=== PATIENT | female | born 1970 | race Caucasian/White ===

== ENCOUNTER → 2023-09-15 07:27 | Outpatient (REF) | payer OTHER, SELFPAY | LOC: EMG 07:27 | PROVIDERS: ATTENDING PHYSICIAN Orthopaedic Surgery | DX: M25.511 Pain in right shoulder (principal); R20.0 Anesthesia of skin | CPT/HCPCS: 95886; 95910 ==

== ENCOUNTER 2023-10-08 18:13 | Observation (INO) | payer OTHER, SELFPAY ==
[2023-10-08] VITALS (10 sets, daily range): BP systolic 98–153; BP diastolic 78–109; BMI 24.9
--- NOTE | 2023-10-08 13:29 | ED TECH ---
A STROKE ALERT was called #[phone]#@13:28 pm per Jeanne(hog cooler). [employer] Notified.
[2023-10-08 13:34] LABS: Glucose - Point of Care 188 mg/dl (70-99)
--- NOTE | 2023-10-08 13:39 | ED.CVA ---
History of Present Illness
General
Chief Complaint: CVA/TIA Symptoms
Source: patient
Exam Limitations: none
Time Seen by Provider: 10/08/23 13:36
Nursing documentation reviewed up to this point in time: agreed with
Onset of Stroke Symptoms
Onset of symptoms known: No
Time pt last seen normal is known: Yes
Date last time pt seen normal: 10/07/23
Travel History
Have you had any contact with someone who has COVID-19?: No
Do you have any symptoms of coronavirus? Fever > 100 degrees, chills, cough, shortness of breath, sore throat, loss of taste or smell, muscle aches, or headache?: No
History of Present Illness
History of Present Illness:
53-year-old female with past medical history as documented notably anxiety, depression, polysubstance use, PTSD, prior suicide attempts who presents to the emergency room for evaluation of speech difficulties. Patient is having difficulty
expressing herself and is as a result very limited as a historian. I called her who provided collateral history� has been sick with COVID has been self isolating self has been trying to keep away from her but he last saw her normal
yesterday. Today when he went down for breakfast she was having difficulty with speech patient brought to the emergency room for assessment. Apparently patient has had issues with chronic neck pain and was apparently scheduled for surgery with
[facility] this past Friday but unfortunately the procedure was declined by patient's insurance and she found out on Friday that it would have to be rescheduled. describes that she has had 'an mental downfall' since that point and has been very
anxious and distraught. Apparently over the past few days she has not been eating or drinking well. This morning he happened upon her with her speech issues when he saw her at breakfast. When I asked the patient what is wrong she says 'I do not
know what is wrong.' When asked of the months she is unable to tell me. She can tell me her name. She can answer basic yes or no questions and so she denies any headache, chest pain, abdominal pain, weakness or numbness in extremities, loss of
vision. No history of trauma.
Past History
Past History
ED Past Medical History: GERD, Psychiatric (Anxiety, depression, PTSD, substance abuse) and Other (Chronic low back pain, lumbar disc disease, anemia, small bowel obstructions)
ED Past Surgical History: Tonsilectomy and Other (Gastric bypass 2002, small bowel perforation, abdominal wall hernia repair,)
Social History
Tobacco: Non-smoker
Alcohol: None
Drug: Other
Personal:
Living: with family
Employment: Employed
Family History
Family History: CAD; Negative Early CAD
Review of Systems
Review of Systems
Unable to obtain full review of systems at this time due to: due to acuity
All Other Systems: Not applicable
Phy Exam
Physical Exam
Physical Exam:
General: Awake, alert, very anxious and with significant expressive aphasia
Head: Normocephalic, atraumatic
Eyes: Conjunctiva normal, EOMI, pupils equal round reactive to light bilaterally
Throat: Airway intact, handling secretions
Neck: Trachea midline, supple without meningismus
Lungs: Clear to auscultation bilaterally, no wheezing, rales, rhonchi
Heart: Tachycardia with regular rhythm, no murmurs, gallops, or rubs
Abd: Soft, non distended, nontender
Neuro: Cranial nerves are intact 2 through 12, patient following commands, she has expressive aphasia but no notable dysarthria; motor and sensory function is intact and symmetric upper and lower extremities, no limb ataxia
Skin: no rash
Extremities: Warm and well-perfused
Scores
NIH Stroke Score
Level of Consciousness: 0 - Alert
LOC Questions: 1-Answers one correctly
LOC Commands: 0-Performs both correctly
Best Horizontal Gaze: 0-Normal
Visual Mario: 0=Normal, no visual loss
Facial Palsy: 0=Normal, symmetrical
Motor - Right Arm: 0=No drift 10 seconds
Motor - Left Arm: 0=No drift 10 seconds
Motor - Right Le-No drift 5 seconds
Motor - Left Le-No drift 5 seconds
Limb Ataxia: 0-Absent
Sensation: 0-Normal
Best Language: 2-Severe aphasia
Dysarthria: 0-Normal
Extinction and Inattention: 0-No abnormality
Total Score:: 3
Thrombolytic Contraindication
Inclusion and Exclusion criteria reviewed: Yes
Reasons for NON-Tx with Thrombolytics ABSOLUTE Exclusions: Greater than 4.5 hrs from onset of sxs
Heart Failure Risk
Heart Failure Risk Score: Not Applicable
Heart Score for Chest Pain Patients
STEMI patient?: Not applicable
Withdrawal Assessment of Alcohol
Withdrawal Assessment Completed?: Not applicable
Course
Orders/Labs/Results
Orders:
Orders
10/08/23 13:36
CT Head & Neck Angio W/wo IV Urgent
Comment:
Reason For Exam: aphasia
CT Head W/o Cont STROKE ALERT Urgent
Comment:
Reason For Exam: aphasia
10/08/23 13:37
Electrocardiogram (*1) Urgent
Reason for Study: TIA/Stroke
EKG- Treatment ONCE
Drug Screen, Urine [Urine Drug Abuse Screen] Urgent
Urinalysis Reflex To Culture Urgent
10/08/23 13:46
PTT Urgent
Prothrombin Time Urgent
10/08/23 13:47
Alcohol Urgent
Complete Blood Count/With Diff Urgent
Comprehensive Metabolic Panel Urgent
Creatine Phosphokinase Urgent
GGTP Urgent
Magnesium Urgent
Vitamin B12 Routine
Comment: ADD ON
10/08/23 13:49
COVID-19 Antigen Urgent
Source: Nasal Swab
Influenza A+B Rapid Molecular Urgent
DWAYNE Source: Nasal Swab
Specimen Description:
10/08/23 13:53
Lorazepam [Ativan] 1 mg PO NOW STA
10/08/23 15:55
Thiamine Injection 100 mg IV NOW STA
10/08/23 15:56
0.9% Sodium Chloride 500 ml [Nss] 500 ml IV BOLUS
FOLic ACID [Folvite] 1 mg 0.9% Sodium Chloride 50 ml [Nss] 50 ml IV ONCE
10/08/23 16:18
Lorazepam [Ativan] 0.5 mg IV NOW STA
10/08/23 16:32
Add On- LAB Routine
Tests Added?: cpk,ggtp,Magnesium,B12
10/08/23 17:06
Admit/Transfer Patient As Directed
Co-Sign Provider:
Level of Care: Observation services
Assign to:: Telemetry
Physician / Group: Hospitalist
Diagnosis: Expressive aphasia
Reason for Telemetry: CVA/TIA
Date to Stop Telemetry: 10/11/23
Time to Stop Telemetry: 11:00
10/08/23 17:09
Code Status As Directed
Resuscitation Status: Full Code
10/11/23 11:00
DC Protocol for Telemetry ONCE
Abnormal Lab Results
10/08/23 10/08/23 10/08/23
13:32 13:47 13:49
RBC 4.08 L 10^6/uL
(4.20-5.40)
MCH 32.6 H pg
(27.0-31.0)
Abs Immat Gran (auto) 0.1 H 10^3/uL
(0-0.05)
Absolute Neuts (auto) 7.3 H 10^3/uL
(1.4-6.5)
Absolute Lymphs (auto) 0.6 L 10^3/uL
(1.2-3.4)
Absolute Monos (auto) 1.0 H 10^3/uL
(0.1-0.6)
Immature Gran % 0.8 H %
(0-0.5)
Neutrophils % 80.7 H %
(42.2-75.2)
Lymphocytes % 6.9 L %
(20.5-51.1)
Monocytes % 10.8 H %
(1.7-9.3)
Sodium 134 L mmol/L
(135-145)
BUN 22 H mg/dl
(7-17)
Glucose 143 H mg/dl
(70-99)
AST 256 H U/L
(14-36)
ALT 92 H U/L
(0-35)
SARS-CoV-2 Antigen Positive A
(Negative)
POC Glucose 188 H mg/dl
(70-99)
10/08/23 13:47
10/08/23 13:47
Vital Signs
Initial and Last Documented VS:
Initial Vital Signs
Temp Pulse Resp BP Pulse Ox
37.1 C 136 18 126/85 98
10/08/23 13:26 10/08/23 13:26 10/08/23 13:26 10/08/23 13:26 10/08/23 13:26
Last Documented Vital Signs
Temp Pulse Resp BP Pulse Ox
37.1 C 114 24 129/85 98
10/08/23 13:26 10/08/23 17:30 10/08/23 17:30 10/08/23 17:06 10/08/23 13:26
MDM/Problems Addressed
Differential Diagnosis Includes:
Stroke, panic attack, seizure, complex migraine, drug/alcohol intoxication
MDM/Problems Addressed:
53-year-old female presents for evaluation of speech difficulties first noticed by this morning. Last seen well yesterday. Tachycardic but otherwise normal vitals. Exam as above. Stroke alert called on arrival. Neurology at bedside.
Patient taken for CT head which was negative. IV placed labs sent off including a CBC and a CMP, alcohol level, UDS. She was swabbed for COVID as well given her is positive for COVID. Will send for CTA head and neck. Neurology
recommending dose of Ativan. Neurology recommended against tPA patient outside the window. Will plan for admission pending initial workup.
Labs reviewed CBC unremarkable, CMP shows mild transaminitis with AST greater than ALT consistent with some alcohol use. Her alcohol level is negative right now. She tested positive for COVID. CTA head and neck no large vessel occlusion or
dissection. Clinical reassessment patient's expressive aphasia remains unchanged but she is having increasing anxiety and agitation. Will dose with additional Ativan. Case discussed with hospitalist for admission.
Chronic conditions affecting care:
Substance use, anxiety, depression
*Radiology
Radiology exam reviewed: radiology read reviewed
*Pulse Oximetry
Patient hypoxic: no
*EKG
Interpreted by ED Provider?: Yes
Heart Rate: 119
Rate: tachycardiac
Rhythm: sinus and sinus tachycardia
[place]: normal axis
Interval: normal interval
QRS Pattern: normal QRS
Ischemia: no ischemia
*Critical Care Note
Total Time (30-74mins, 75-104mins- exclusive of procedures): 39
comment:
Critical care statement: A total of 39 minutes of critical care time was provided for this patient. This includes management of unstable vital signs, evaluation of the patient at bedside, frequent reassessment, discussion with
consultants/hospitalist, and review of pertinent medical records. This time was separate from time utilized to perform any aforementioned documented procedures
Data Reviewed
Review of Other/Old Records Reveals: Records
Source: patient and spouse
Patient Management
Social determinants of health affecting care: Substance abuse
Discussion with other providers: Hospitalist (Discussed with hospitalist) and Formal Waiter/Waitress (Discussed with neurology)
Escalation/DeEscalation of care consider admission/obs:
Admission indicated
ED Attending Note
-
Portions of this chart may have been created with voice recognition software.� Occasional wrong word or��sound alike� substitutions may have occurred due to the inherent limitations of voice recognition software.
Discharge Plan
Departure
Patient Disposition: Admit
Date of Disposition: 10/08/23
Time of Disposition: 15:55
Admit to doctor: Debi
Presentation/result/management discussed w/ accepting MD/DO: Hospitalist
Discharge Problem:
Expressive aphasia
Prescriptions:
No Action
albuterol sulfate 2.5 mg /3 mL (0.083 %) Solution For Nebulization
2.5 mg INHALATION R Q4HPRN PRN (Reason: sob)
trazodone 50 mg Tablet
50 mg PO HS PRN (Reason: sleep)
tizanidine 4 mg Tablet
4 mg PO BID PRN (Reason: muscle spasms)
clonazepam 0.5 mg Tablet
0.5 mg PO BID PRN (Reason: anxiety)
Patient Comments:
10/08/2023, pt. filled this med. on 10/05/2023 for 60 tablets per PDMP.
cyanocobalamin (vitamin B-12) 1,000 mcg Tablet
1,000 mcg PO DAILY
Theragen Tablet
1 tab PO DAILY
melatonin 3 mg Tablet
3 mg PO HS PRN (Reason: sleep)
ferrous sulfate 325 mg (65 mg iron) Tablet
325 mg PO DAILY
buspirone 7.5 mg Tablet
7.5 mg PO BID
zolpidem 5 mg Tablet
5 mg PO HS PRN (Reason: sleep)
Patient Comments:
10/08/2023, pt. filled this on 10/05/2023 for 30 tablets per PDMP.
albuterol sulfate 90 mcg/actuation Hfa Aerosol Inhaler
1 puff INHALATION R Q4HPRN PRN (Reason: sob)
morphine 15 mg Tablet
15 mg PO Q8H PRN (Reason: severe pain)
Patient Comments:
10/08/2023, pt. filled this med. on 09/29/2023 for 90 tablets per PDMP.
prazosin 2 mg Capsule
2 mg PO HS
spironolactone 50 mg Tablet
50 mg PO BID
pregabalin 50 mg Capsule
100 mg PO BID
Patient Comments:
10/08/2023, pt. filled this med. on 09/30/2023 for 120 capsules per PDMP.
pregabalin 150 mg Capsule
150 mg PO BID
Patient Comments:
10/08/2023, pt. filled this med. on 10/03/2023 for 60 capsules per PDMP.
cholecalciferol (vitamin D3) 50 mcg (2,000 unit) Tablet
50 mcg PO DAILY
baclofen 5 mg Tablet
5 mg PO BID PRN (Reason: muscle spasms)
Referrals:
UNKNOWN - PT DOES,NOT KNOW [Family Provider] -
Interventions
Interventions:
*Risk Screen - Suicide Last Done: 10/08/23 13:59
*General Assessment Last Done: 10/08/23 13:40
*Neglect/Abuse Screening Last Done: 10/08/23 13:59
ED- Fall Risk Assessment Last Done: 10/08/23 13:53
*ED COVID-19 Vaccine History Last Done: 10/08/23 13:40
ED- Pulmonary Assessment Last Done: 10/08/23 13:53
ED- Neurological Assessment Last Done: 10/08/23 13:53
ED- Cardiac Assessment Last Done: 10/08/23 13:53
ED Swallowing Screen Last Done: 10/08/23 13:59
[2023-10-08 14:01] LABS: % Basophils 0.6 % (0-2); % Eosinophils 0.2 % (0-6); % Immature Granulocytes 0.8 % (0-0.5); % Lymphocytes 6.9 % (20.5-51.1); % Monocytes 10.8 % (1.7-9.3); % Neutrophils 80.7 % (42.2-75.2); Absolute Basophils 0.1 10^3/uL (0-0.2); Absolute Immature Granulocytes 0.1 10^3/uL (0-0.05); Absolute Lymphocytes 0.6 10^3/uL (1.2-3.4); Absolute Neutrophils 7.3 10^3/uL (1.4-6.5); Hematocrit 38.3 % (37.0-47.0); Hemoglobin 13.3 g/dL (12.0-16.0); Mean Corp Hgb Conc. 34.7 g/dL (33.0-37.0); Mean Corpuscular Hgb 32.6 pg (27.0-31.0); Mean Corpuscular Volume 93.9 fL (81.0-99.0); Nucleated Red Blood Cells % 0 %; Platelet Count 236 10^3/uL (130-400); Red Blood Cell Count 4.08 10^6/uL (4.20-5.40); Red Cell Dist. Width 13.1 % (11.5-14.5)
[2023-10-08] MEDS: ATIVAN 1 MG PO (14:05)
[2023-10-08 14:17] LABS: ALT (SGPT) 92 U/L (0-35); AST (SGOT) 256 U/L (14-36); Albumin 4.4 g/dl (3.5-5.0); Alkaline Phosphatase 108 U/L (38-126); Blood Urea Nitrogen 22 mg/dl (7-17); Calcium 9.1 mg/dl (8.4-10.2); Carbon Dioxide 26 mmol/L (22-30); Chloride 100 mmol/L (98-107); Glucose 143 mg/dl (70-99); Sodium 134 mmol/L (135-145); Total Bilirubin 0.8 mg/dl (0.2-1.3); Total Protein 6.9 g/dl (6.3-8.2); eGFR > 60.00
[2023-10-08 14:19] LABS: COVID-19 Antigen Positive (Negative)
[2023-10-08 14:22] LABS: APTT 31.8 Sec (23.4-35.0); INR 1.07; PT 13.9 Sec (11.4-14.6)
[2023-10-08 14:22] LABS: Alcohol None Detected
--- NOTE | 2023-10-08 15:36 | CON.NEURO4 ---
Addendum entered and electronically signed by Sai Lundy MD 10/08/23 16:55:
Studies reviewed.
I have personally examined the patient. I reviewed and agree with the COMMERCIAL LOAN ASSISTANT's Note.
My addenda:
Awake, alert, interactive. No acute distress.
Speech variably intact for spontaneous phrases and markedly reduced with specific testing with regards to smooth speech. Words are clear with exception of stuttering
Follows 2-step requests w/o difficulty. No tremor.
Extra-ocular movements grossly intact.
Facial movements full and symmetric. Hearing intact to normal conversational volume.
Normal UE movements bilaterally.
Neck: full ROM.
Chest: no dyspnea
Heart: no JVD
Ext: (-) Clubbing, (-) Cyanosis, (-) Edema
IMPRESSIONS/RECOMMENDATIONS:
Abrupt onset of aphasia in the form of stuttering and emotional dyscontrol with a prior history of functional neurological disorder.
Differential diagnosis includes functional neurological disorder as well as much less likely, stroke which is made even less likely based on CT of the head being unremarkable, however more likely in the form of newly diagnosed COVID-19 infection
There is no indication this time the patient will require additional neuroimaging
Provide lorazepam 1 mg now
Check blood work for additional metabolic abnormalities which may be producing patient's symptomatology
Will continue to follow as needed.
Original Note:
Documented by User: Nell Ng NP 10/08/23 16:00
Consultation - Neurology 4
-
CONSULTING PHYSICIAN: Sai Lundy MD
REFERRING PHYSICIAN: ER/Dr. Scott
DICTATED BY: ALVARO Tyler
DATE/TIME OF REQUEST: 10/08/23
DATE/TIME OF CONSULTATION: 10/08/23
Reason for Consultation: Stroke Alert
History of Present Illness:
This is a 53-year-old female who has presented to the hospital with report of expressive aphasia. Patient was previously evaluated by our Neurology service in 03/2017 for seizure-like activity, MRI brain and EEG were unremarkable at that time.
From previous evaluation by Dr. Wilson on 04/26/17:
'The patient is a 47 years old female who was brought to the hospital last night with chief complaint of an episode of full body stiffness and shaking. Patient reports that since yesterday she has been feeling dizzy, and uneasy. Last night before
going to the bed, she was using the toilet, when she suddenly experienced an electric sensation passing through her left upper extremity then spreading to involve her left lower extremity, and then resulting in stiffness of all her 4 extremities
which was accompanied by shaking. This scared the patient, and she called out for her . When the came to the bathroom he found the patient to be stiff in all 4 extremities, shaking, with her tongue protruding out, and possibly bitten.
This episode lasted for about 45 seconds and patient was aware of it up until the time of stiffening of the extremities and electric sensation going through it.� She is not aware of the actual shaking, but remembers her getting her to the
bed. She denies any confusion immediately after this episode. She denies having experienced any similar events in the past. She reports going through a lot of stress lately because of some serious family issues. She also reports inadequate sleep in
the last few days because of her chronic back pain. She denies having taken any nonprescription medications. She denies having had any other similar episodes since arrival at the hospital.'
Patient has been experiencing chronic neck pain and was scheduled for cervical surgery on 10/06/[address] Hurd at [facility]. Due to insurance circumstances, her surgery was canceled. Her has been isolating due to COVID, but he reports
since her surgery was canceled, she has had a mental 'downfall' and has not been eating or drinking. He reports that he saw her last evening (10/07/23) and she was at her baseline. This morning (10/08/23), she brought him breakfast and he noticed that
she was not speaking normally, prompting him to bring her to the ER for evaluation. A stroke alert was activated due to aphasia. CT head was obtained and is negative for any acute abnormalities. NIHSS is a 2 for mild aphasia and inability to provide
the month. She has a history of gastric bypass and also takes several medications for chronic pain and psychological issues. She is not a candidate for TNK/IAT due to unclear diagnosis, symptoms less supportive of stroke and more supportive of
anxiety and polypharmacy/lack or oral intake.
Past Medical History: PNES, Anxiety, depression, PTSD, substance abuse, overdose, migraines, GERD, chronic low back pain, lumbar DDD, C5 radiculopathy, SBO/perforation, anemia
Surgical History: Tonsillectomy, gastric bypass, abdominal wall hernia repair, colectomy, mastoidectomy
Family History: Mother- brain tumor and seizures.
Social History: Denies tobacco, alcohol, and illicit drug use.
Allergies: Ketamine, sulfa, tetracycline.
Home Medications: See below.
Review of Symptoms:
Patient denies any fever, headache, chest pain, shortness of breath, GI or symptoms.
�Per the HPI.�All systems are reviewed negative except above.
Physical Exam:
The patient is afebrile, abdomen is nondistended, breathing is unlabored, skin is warm and dry. LLE with ecchymosis and trace edema.
NIH Stroke Scale:
I performed the NIH stroke scale on the patient on 10/08/23 at 1345. The patient scored 2 points on the NIH stroke scale assessment, which were assigned as follows:
Neurologic Examination:
The patient is awake, alert and oriented to person and place, confused behavior. Tearful/anxious. She is able to follow commands and answer some questions appropriately. There is mild aphasia. No dysarthria. On cranial nerve assessment, pupils are
3 mm bilateral, round and reactive to light and accommodation. Visual mario are full. Extraocular movements are intact. There is no facial asymmetry. Hearing is intact bilaterally to normal conversation volume. Tongue palate and uvula are midline.
There is no tongue laceration noted. Sternocleidomastoid strengths are full bilaterally. Motor strengths are 5/5 bilateral upper and lower extremities on medical research [place] scale. There is no drift or involuntary movement noted. Deep tendon
reflexes are 2+ bilateral upper and lower extremities and Babinski is absent bilaterally. SAHARA sensation and DBS. Coordination is intact by finger to nose bilaterally.
Lab Results: See below.
Neuro Imaging:
1. CT head 10/08/23: Normal. Aspect score: 10.
2. CTA head/neck 10/08/23: pending.
Differentials for the patient's presentation include:
1. Metabolic disturbance in the setting of polypharmacy and lack of oral intake in addition to anxiety, producing speech changes.
2. Low concern for stroke or seizure.
3. COVID positive.
Patient has the following risk factors for their symptoms: Polypharmacy, anorexia, gastric bypass, anxiety
IV Tenecteplase/IAT candidacy: She is not a candidate for TNK/IAT due to unclear diagnosis, symptoms less supportive of stroke and more supportive of anxiety and polypharmacy/lack of oral intake.
Recommendations:
-CTA head/neck ordered/pending.
-Checking blood work for metabolic disturbance, infection, drug/alcohol screen.
-Provide lorazepam 1mg x1 now.
-Provide thiamine and folic acid supplementation.
-Neurological checks per unit guidelines.
Discussed patient care with: Dr. Lundy, Dr. Scott, the patient.
NIH Stroke Score
Subsequent NIH Scale
Date of Subsequent NIH Scale: 10/08/23
Time of Subsequent NIH Scale: 13:45
NIH Stroke Score
Level of Consciousness: 0 - Alert
LOC Questions: 1-Answers one correctly
LOC Commands: 0-Performs both correctly
Best Horizontal Gaze: 0-Normal
Visual Mario: 0=Normal, no visual loss
Facial Palsy: 0=Normal, symmetrical
Motor - Right Arm: 0=No drift 10 seconds
Motor - Left Arm: 0=No drift 10 seconds
Motor - Right Le-No drift 5 seconds
Motor - Left Le-No drift 5 seconds
Limb Ataxia: 0-Absent
Sensation: 0-Normal
Best Language: 1-Mild aphasia
Dysarthria: 0-Normal
Extinction and Inattention: 0-No abnormality
Total Score:: 2
Vital Signs and Labs
-
Vital Signs and Labs:
Vital Signs
Temp Pulse Resp BP Pulse Ox
98.7 F 128 12 142/92 98
10/08/23 13:26 10/08/23 13:45 10/08/23 13:45 10/08/23 13:44 10/08/23 13:26
Lab Results
10/08/23 13:47
10/08/23 13:47
PT 13.9 Sec (11.4-14.6) 10/08/23 13:46
INR 1.07 10/08/23 13:46
APTT 31.8 Sec (23.4-35.0) 10/08/23 13:46
Sodium 134 mmol/L (135-145) L 10/08/23 13:47
Potassium 4.0 mmol/L (3.5-5.1) 10/08/23 13:47
BUN 22 mg/dl (7-17) H 10/08/23 13:47
Glucose 143 mg/dl (70-99) H 10/08/23 13:47
Calcium 9.1 mg/dl (8.4-10.2) 10/08/23 13:47
Medications
-
Home Medications
Medication Instructions Recorded
albuterol sulfate 2.5 mg/3 mL 2.5 mg inhalation R Q4HPRN PRN sob 10/08/23
(0.083 %) solution for nebulization
albuterol sulfate 90 mcg/actuation 1 puff inhalation R Q4HPRN PRN sob 10/08/23
aerosol inhaler
baclofen 5 mg tablet 5 mg PO BID PRN muscle spasms 10/08/23
buspirone 7.5 mg tablet 7.5 mg PO BID 10/08/23
cholecalciferol (vitamin D3) 50 50 mcg PO DAILY 10/08/23
mcg (2,000 unit) tablet
clonazepam 0.5 mg tablet 0.5 mg PO BID PRN anxiety 10/08/23
cyanocobalamin (vitamin B-12) 1,000 mcg PO DAILY 10/08/23
1,000 mcg tablet
ferrous sulfate 325 mg (65 mg 325 mg PO DAILY 10/08/23
iron) tablet
melatonin 3 mg tablet 3 mg PO HS PRN sleep 10/08/23
morphine 15 mg immediate release 15 mg PO Q8H PRN severe pain 10/08/23
tablet
prazosin 2 mg capsule 2 mg PO HS 10/08/23
pregabalin 150 mg capsule 150 mg PO BID 10/08/23
pregabalin 50 mg capsule 100 mg PO BID 10/08/23
spironolactone 50 mg tablet 50 mg PO BID 10/08/23
therapeutic multivitamin 1 tab PO DAILY 10/08/23
tizanidine 4 mg tablet 4 mg PO BID PRN muscle spasms 10/08/23
trazodone 50 mg tablet 50 mg PO HS PRN sleep 10/08/23
zolpidem 5 mg tablet 5 mg PO HS PRN sleep 10/08/23

Documented by User: Sai Lundy MD 10/08/23 16:48
Consultation - Neurology 4
-
CONSULTING PHYSICIAN: Sai Lundy MD
REFERRING PHYSICIAN: ER/Dr. Scott
DICTATED BY: ALVARO Tyler
DATE/TIME OF REQUEST: 10/08/23
DATE/TIME OF CONSULTATION: 10/08/23
Reason for Consultation: Stroke Alert
History of Present Illness:
This is a 53-year-old female who has presented to the hospital with report of expressive aphasia. Patient was previously evaluated by our Neurology service in 03/2017 for seizure-like activity, MRI brain and EEG were unremarkable at that time.
From previous evaluation by Dr. Wilson on 04/26/17:
'The patient is a 47 years old female who was brought to the hospital last night with chief complaint of an episode of full body stiffness and shaking. Patient reports that since yesterday she has been feeling dizzy, and uneasy. Last night before
going to the bed, she was using the toilet, when she suddenly experienced an electric sensation passing through her left upper extremity then spreading to involve her left lower extremity, and then resulting in stiffness of all her 4 extremities
which was accompanied by shaking. This scared the patient, and she called out for her . When the came to the bathroom he found the patient to be stiff in all 4 extremities, shaking, with her tongue protruding out, and possibly bitten.
This episode lasted for about 45 seconds and patient was aware of it up until the time of stiffening of the extremities and electric sensation going through it.� She is not aware of the actual shaking, but remembers her getting her to the
bed. She denies any confusion immediately after this episode. She denies having experienced any similar events in the past. She reports going through a lot of stress lately because of some serious family issues. She also reports inadequate sleep in
the last few days because of her chronic back pain. She denies having taken any nonprescription medications. She denies having had any other similar episodes since arrival at the hospital.'
Patient has been experiencing chronic neck pain and was scheduled for cervical surgery on 10/06/[address] Hurd at [facility]. Due to insurance circumstances, her surgery was canceled. Her has been isolating due to COVID, but he reports
since her surgery was canceled, she has had a mental 'downfall' and has not been eating or drinking. He reports that he saw her last evening (10/07/23) and she was at her baseline. This morning (10/08/23), she brought him breakfast and he noticed that
she was not speaking normally, prompting him to bring her to the ER for evaluation. A stroke alert was activated due to aphasia. CT head was obtained and is negative for any acute abnormalities. NIHSS is a 2 for mild aphasia and inability to provide
the month. She has a history of gastric bypass and also takes several medications for chronic pain and psychological issues. She is not a candidate for TNK/IAT due to unclear diagnosis, symptoms less supportive of stroke and more supportive of
anxiety and polypharmacy/lack or oral intake.
Past Medical History: PNES, Anxiety, depression, PTSD, substance abuse, overdose, migraines, GERD, chronic low back pain, lumbar DDD, C5 radiculopathy, SBO/perforation, anemia
Surgical History: Tonsillectomy, gastric bypass, abdominal wall hernia repair, colectomy, mastoidectomy
Family History: Mother- brain tumor and seizures.
Social History: Denies tobacco, alcohol, and illicit drug use.
Allergies: Ketamine, sulfa, tetracycline.
Home Medications: See below.
Review of Symptoms:
Patient denies any fever, headache, chest pain, shortness of breath, GI or symptoms.
�Per the HPI.�All systems are reviewed negative except above.
Physical Exam:
The patient is afebrile, abdomen is nondistended, breathing is unlabored, skin is warm and dry. LLE with ecchymosis and trace edema.
NIH Stroke Scale:
I performed the NIH stroke scale on the patient on 10/08/23 at 1345. The patient scored 2 points on the NIH stroke scale assessment, which were assigned as follows:
Neurologic Examination:
The patient is awake, alert and oriented to person and place, confused behavior. Tearful/anxious. She is able to follow commands and answer some questions appropriately. There is mild aphasia. No dysarthria. On cranial nerve assessment, pupils are
3 mm bilateral, round and reactive to light and accommodation. Visual mario are full. Extraocular movements are intact. There is no facial asymmetry. Hearing is intact bilaterally to normal conversation volume. Tongue palate and uvula are midline.
There is no tongue laceration noted. Sternocleidomastoid strengths are full bilaterally. Motor strengths are 5/5 bilateral upper and lower extremities on medical research [place] scale. There is no drift or involuntary movement noted. Deep tendon
reflexes are 2+ bilateral upper and lower extremities and Babinski is absent bilaterally. SAHARA sensation and DBS. Coordination is intact by finger to nose bilaterally.
Lab Results: See below.
Neuro Imaging:
1. CT head 10/08/23: Normal. Aspect score: 10.
2. CTA head/neck 10/08/23: pending.
Differentials for the patient's presentation include:
1. Metabolic disturbance in the setting of polypharmacy and lack of oral intake in addition to anxiety, producing speech changes.
2. Low concern for stroke or seizure.
3. COVID positive.
Patient has the following risk factors for their symptoms: Polypharmacy, anorexia, gastric bypass, anxiety
IV Tenecteplase/IAT candidacy: She is not a candidate for TNK/IAT due to unclear diagnosis, symptoms less supportive of stroke and more supportive of anxiety and polypharmacy/lack of oral intake.
Recommendations:
-CTA head/neck ordered/pending.
-Checking blood work for metabolic disturbance, infection, drug/alcohol screen.
-Provide lorazepam 1mg x1 now.
-Provide thiamine and folic acid supplementation.
-Neurological checks per unit guidelines.
Discussed patient care with: Dr. Lundy, Dr. Scott, the patient.
NIH Stroke Score
NIH Stroke Score
Total Score:: 2
--- NOTE | 2023-10-08 16:27 | HPS.HSE ---
Addendum entered and electronically signed by Lianna Purvis MD 10/08/23 17:21:
COVID-19 infection-asymptomatic not hypoxic. Hold off on any treatments specifically for COVID-19.
Original Note:
Family Physician
-
Family Physician: NOT KNOW UNKNOWN - PT DOES
Chief Complaint
-
Speech problem
History of Present Illness
History per [id number]-old female presented to the hospital with speech abnormality. She was having difficulty expressing words. Patient has a history of chronic neck pain and supposed to get surgery to [place]. Due to insurance surgery was
canceled. Patient is in a lot of stress. Patient's has been isolating because of COVID. She brought him breakfast today and noted that she was not speaking normally therefore brought to the ER. Patient was not considered a candidate for
thrombolytic therapy per neurology.
Patient is not able to give me a meaningful history. She has periods of expressive aphasia
Medical History
Past Medical History
Past Medical History: Reports Psychiatric (PTSD, anxiety, depression, history of overdose and substance abuse in the past) and Other (Migraines, GERD, chronic back pain, lumbar DDD, C5 radiculopathy, history of small bowel obstruction and
perforation, anemia)
Additional Past Medical History:
10% compression fracture of the superior endplate of T11
Past Surgical History: Reports Tonsilectomy and Other
Additional Past Surgical History:
History of gastric bypass surgery, hysterectomy, abdominal wall hernia repair, history of small bowel obstruction 2012, this time to surgery 87, [id number] unclear
Social History
Unable to obtain full social history at this time due to: Other (Expressive aphasia)
Family History
Family History: Not pertinent and Other (Mother with a history of brain tumor and seizures)
Allergies / Home Medications
Allergies reflects when Allergies were last updated in [facility].
Home Medications with original date entered in [facility]
Allergy/Medication List:
Allergies
Allergy/AdvReac Type Severity Reaction Status Date / Time
ketamine Allergy HALLUCINATI Verified 10/08/23 13:25
ONS
Sulfa (Sulfonamide Allergy Rash & Verified 10/08/23 13:25
Antibiotics) Toungue
Swelling
tetracycline [Tetracycline] Allergy Rash & Verified 10/08/23 13:25
Tongue
Sweling
Home Medications
albuterol sulfate 2.5 mg/3 mL (0.083 %) solution for nebulization 2.5 mg inhalation R Q4HPRN PRN sob 10/08/23
albuterol sulfate 90 mcg/actuation aerosol inhaler 1 puff inhalation R Q4HPRN PRN sob 10/08/23
baclofen 5 mg tablet 5 mg PO BID PRN muscle spasms 10/08/23
buspirone 7.5 mg tablet 7.5 mg PO BID 10/08/23
cholecalciferol (vitamin D3) 50 mcg (2,000 unit) tablet 50 mcg PO DAILY 10/08/23
clonazepam 0.5 mg tablet 0.5 mg PO BID PRN anxiety 10/08/23
cyanocobalamin (vitamin B-12) 1,000 mcg tablet 1,000 mcg PO DAILY 10/08/23
ferrous sulfate 325 mg (65 mg iron) tablet 325 mg PO DAILY 10/08/23
melatonin 3 mg tablet 3 mg PO HS PRN sleep 10/08/23
morphine 15 mg immediate release tablet 15 mg PO Q8H PRN severe pain 10/08/23
prazosin 2 mg capsule 2 mg PO HS 10/08/23
pregabalin 150 mg capsule 150 mg PO BID 10/08/23
pregabalin 50 mg capsule 100 mg PO BID 10/08/23
spironolactone 50 mg tablet 50 mg PO BID 10/08/23
therapeutic multivitamin 1 tab PO DAILY 10/08/23
tizanidine 4 mg tablet 4 mg PO BID PRN muscle spasms 10/08/23
trazodone 50 mg tablet 50 mg PO HS PRN sleep 10/08/23
zolpidem 5 mg tablet 5 mg PO HS PRN sleep 10/08/23
Review of Systems
-
Unable to obtain full review of systems at this time due to: Other (Unobtainable)
Physical Exam
Vital Signs
Vital Signs
Temp Pulse Resp BP Pulse Ox
98.7 F 128 12 142/92 98
10/08/23 13:26 10/08/23 13:45 10/08/23 13:45 10/08/23 13:44 10/08/23 13:26
Physical Exam
General: Other (Extremely anxious appearing)
Respiratory: Clear
Cardiac: S1/S2 and Regular Rhythm
GI: Soft, Non Tender and Normal Bowel Sounds
Neuro: Awake, Alert, No Motor Deficits, Cranial Nerves Intact and Other (Expressive aphasia noted which is intermittent); No Facial Droop
Psych: Anxious
Laboratory Results
-
10/08/23 13:47
10/08/23 13:47
Laboratory Results
PT 13.9 Sec (11.4-14.6) 10/08/23 13:46
INR 1.07 10/08/23 13:46
APTT 31.8 Sec (23.4-35.0) 10/08/23 13:46
Total Bilirubin 0.8 mg/dl (0.2-1.3) 10/08/23 13:47
AST 256 U/L (14-36) H 10/08/23 13:47
ALT 92 U/L (0-35) H 10/08/23 13:47
Alkaline Phosphatase 108 U/L (38-126) 10/08/23 13:47
Data Reviewed
-
CT Scan: Report Reviewed by me (Head CT normal)
Medical Tests (Nuc Med, Echo, EKG etc): Image Personally Visualized and interpreted (EKG-sinus tachycardia otherwise normal)
Impression/Plan
-
IMPRESSION/PLAN:
# Speech abnormality
Expressive aphasia intermittent. Patient is able to answer intermittently but then has repeated stuttering of words and keeps repeating the same words.
No other focal findings
Patient has risk factors like COVID
Intermittent explosive aphasia where patient keeps on repeating the same words at times she has fluent answers.
Admit to telemetry observation
Neuro checks/NIH scale
Follow neurology recommendations
CTA of the head and neck
MRI of the brain
# Elevated LFTs-check GGT, CPK
Unclear if she drinks alcohol
Thiamine has been given in the ER-I would continue that
Alcohol level-Neg
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
# Radiculopathy with chronic pain
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
Opiate dependence
On Zanaflex, Lyrica, morphine, baclofen as OP
Continue Lower dose of Lyrica
Hold others
# Anxiety/depression/PTSD/history of suicide attempt
On buspirone, clonazepam, trazodone as OP
Patient appears to be extremely anxious asking repeatedly if she is going to .
Psychiatric evaluation to see if she needs all these meds
Hold Buspar and Trazodone
Continue clonazepam
# Insomnia on Ambien as needed and trazodone-Hold
# History of anorexia and bulimia per chart
# History of seizures-likely not epileptiform
# ? Hypertension Patient is on on prazosin, Aldactone
# Gastric bypass surgery in the past
# History of overdose
# History of small bowel obstruction with surgery in the past
# GERD-Add PPI
#DVT Prophylaxis Lovenox
#Full CODE
D/W RN
Left message for
I have not been able to get a complete history. Will get more information when the calls back.
[2023-10-08] MEDS: NSS 500 IV (17:47)
[2023-10-08] MEDS: THIAMINE INJECTION 100 MG IV (17:48)
[2023-10-08] MEDS: ATIVAN 0.5 MG IV (17:48)
[2023-10-08 17:55] LABS: GGTP 57 U/L (12-43); Magnesium 2.1 mg/dl (1.6-2.3)
[2023-10-08 18:05] LABS: Creatine Phosphokinase 5523 U/L (30-135)
[2023-10-08 18:53] LABS: Vitamin B12 976 pg/ml (239-931)
[2023-10-08] MEDS: ALDACTONE 50 MG PO (20:15)
[2023-10-08] MEDS: VITAMIN B1 100 MG PO (20:15)
[2023-10-08] MEDS: LOVENOX 40 MG SC (20:15)
[2023-10-08] MEDS: LYRICA 100 MG PO (20:15)
--- NOTE | 2023-10-08 20:30 | PTCARENOTE ---
Received patient from ED via stretcher; Pt admitted brought to ED for expressive aphasia. Tested positive for COVID in ED - precautions placed.
CT Head: negative for-> focal or acute intracranial abnormalities- hemorrhage, edema/ mass, extra-axial fluid collections, focal areas of diminished density to suggest infarct.
CTA head/neck:No CTA evidence for high-grade stenosis or occlusion of the arterial vasculature in the head or neck.
MRI brain ordered for 10/08. Tech called spouse, Chris for questions/ PMH.
Telemetry order> Sinus Rhythm- Sinus Tachycardia on monitor- strip placed in patient's chart.
T 99.4, HR 90s-110s, RR 16, BP 127/ 84, pox 95% room air.
NIH/ Neuro checks in place> Pt awake and alert, pupils equal and reactive. Moves all extremities. Pt w/ expressive aphasia, mild slurred speech.
At 1900 NIH 5, at 2000 NIH 2 > refer to worklist.
Pt noticeably upset, tearful. Cries out. Forgetful and confused. Medsitter/ bed alarm in place.
This RN briefly spoke w/ patient's spouse, Chrsi. Chris states that he tested positive for COVID on Friday, October 05. Since then, Chris and patient have been staying apart in house. Chris states that patient experienced a mental breakdown over the
weekend d/t the following issues: 1- patient was injured about 1-2 months at [employer] after supposedly lifting something too heavy. She is followed by [facility]. Patient was suppose to have surgery but was denied? or partially approved?
Chris wasn't quite sure 2- Chris states that he and patient are - divorce in the near feature.
This RN tried reviewing medications with spouse/ Chris but unsure what patient takes or when patient took medications last. Chris states that patient does not drink or take illegal drugs. Patient has a PMH of rehab in past. Alcohol level in the ED
was negative. When questioned about patient's expressive aphasia, Chris said that something must have happened Friday night into Friday morning...
Plan of care discussed with spouse.
[2023-10-08] MEDS: FOLVITE IV (21:16)
[2023-10-08] MEDS: FOLVITE 50.2000000000000028 MG IV (21:39)
[2023-10-08] MEDS: MINIPRESS 2 MG PO (21:57)
--- NOTE | 2023-10-08 22:20 | PTCARENOTE ---
Patient appears to be settling down. NIH currently 2. Expressive aphasia improving. This RN attempted to review medications with patient, but patient unable to tell this RN prescribed medications or her last dose. This appears to frustrates patient.
Admission questions attempted by this RN and patient. When questioned what lead to patient's hospitalization, patient tearfully states that she had a mental breakdown; that her marriage is falling apart, and the surgery she was suppose to have with
Dr. Hurd was cancelled. Patient denies drugs and alcohol.
Patient states she just wants to go home and does not want to upset spouse. This RN reviewed plan of care. Call king within reach.
[2023-10-08] MEDS: KLONOPIN 0.5 MG PO (22:28)
[2023-10-09 03:20] VITALS: BP 112/70
[2023-10-09 04:02] LABS: Urine Albumin Negative (Neg - Trace); Urine Bilirubin Negative (Negative); Urine Character Clear (Clear); Urine Color Yellow; Urine Glucose Negative (Negative); Urine Ketone Negative (Negative); Urine Leukocyte Trace (Negative); Urine Nitrite Negative (Negative); Urine Occult Blood Negative (Negative); Urine Urobilinogen Negative (Neg - 1+)
[2023-10-09 04:20] LABS: Amphetamines Negative (Negative); Barbiturates Negative (Negative); Benzodiazepines Positive (Negative); Buprenorphine Negative (Negative); Cocaine Negative (Negative); Marijuana Negative (Negative); Methadone Negative (Negative); Methamphetamines Negative (Negative); Opiates Positive (Negative); Phencyclidine Negative (Negative); Tricyclic Antidepressants Negative (Negative)
[2023-10-09 04:31] LABS: Fentanyl, Urine Negative (Negative)
[2023-10-09 04:35] LABS: Urine Squamous Cell 16-20 /LPF (Few)
[2023-10-09 04:36] LABS: Urine Bacteria Few (Negative); Urine Red Blood Cell 0-2 /HPF (0-2); Urine White Cell 30-40 /HPF (0-5)
[2023-10-09 05:01] LABS: Hematocrit 33.6 % (37.0-47.0); Hemoglobin 11.7 g/dL (12.0-16.0); Mean Corp Hgb Conc. 34.8 g/dL (33.0-37.0); Mean Corpuscular Hgb 32.8 pg (27.0-31.0); Mean Corpuscular Volume 94.1 fL (81.0-99.0); Mean Platelet Volume 9.3 fL (7.4-10.4); Platelet Count 196 10^3/uL (130-400); Red Blood Cell Count 3.57 10^6/uL (4.20-5.40); Red Cell Dist. Width 12.8 % (11.5-14.5); White Blood Cell Count 4.4 10^3/uL (4.8-10.8)
[2023-10-09 05:35] LABS: ALT (SGPT) 85 U/L (0-35); AST (SGOT) 203 U/L (14-36); Albumin 3.4 g/dl (3.5-5.0); Alkaline Phosphatase 86 U/L (38-126); Blood Urea Nitrogen 13 mg/dl (7-17); Calcium 8.8 mg/dl (8.4-10.2); Carbon Dioxide 27 mmol/L (22-30); Chloride 102 mmol/L (98-107); Estimated Creatinine Clearance 91 ml/min; Glucose 96 mg/dl (70-99); HDL Cholesterol 48 mg/dl; LDL Cholesterol, Calculated 112 mg/dl; Potassium 3.6 mmol/L (3.5-5.1); Sodium 132 mmol/L (135-145); Total Bilirubin 0.7 mg/dl (0.2-1.3); Total Cholesterol 174 mg/dl (50-199); Total Protein 5.7 g/dl (6.3-8.2); Triglyceride 71 mg/dl (10-149); Very Low Density Lipoprotein 14 mg/dl (0-30); eGFR > 60.00
--- NOTE | 2023-10-09 07:12 | PTCARENOTE ---
Patient states she wants to leave AMA. House HOUSE VISITOR and Hospitalist notified. This RN notified patient's spouse, Chris, of current situation. Chris will attempt to call patient.
[2023-10-09] MEDS: LOW STRENGTH ASPIRIN PO ×2 (07:30→07:36)
[2023-10-09] MEDS: LYRICA 100 MG PO ×2 (07:30→20:34)
[2023-10-09] MEDS: FEOSOL 325 MG PO (07:30)
[2023-10-09] MEDS: VITAMIN B1 100 MG PO ×2 (07:30→20:34)
[2023-10-09] MEDS: KLONOPIN 0.5 MG PO ×2 (07:30→20:48)
[2023-10-09 07:54] VITALS: BP 114/80
--- NOTE | 2023-10-09 08:42 | W.PN.UPDATE ---
Update Note
Progress Note Update
while i did speak to patient and her nurse as well as review the chart, formal consult not done as patient refused. she was not rude or angry but said that she had a psychiatrist, is cooperative with taking meds as prescribed and does not need to
see psychiatry at this time. she said she was in a lot of pain from her shoulder and desperately needs surgery which has been delayed by insurance. she is fearful she will lose functioning of that arm which was injured. she denies suicidality. i
see nothing to suggest psychosis. she was NOT aphasic and spoke clearly articulating normally. i did review her meds . many of them are for pain. the medications which are likely psychiatrically prescribed include trazodone and ambien at bedtime
klonopin prn and buspar. the prazosin may be for ptsd. i would refer her back to her regular psychiatrist for adjustment as needed. she has asked to be discharged to pursue getting her surgery approved etc. i don't see any reason why she should
not be discharged from psych point of view. will sign off.
[2023-10-09 08:54] LABS: Glycohemoglobin (HgbA1c) 5.7 % (4.0-5.6)
[2023-10-09] MEDS: ALDACTONE PO (09:37)
--- NOTE | 2023-10-09 10:30 | W.PN.HOSP.TC ---
Today's Communication/Plan
-
IVF
Repeat CPK
USS
MRI
Med adjusted.
Assessment / Plan
Assessment / Plan
Patient very tearful today, Wants to go home .speech is normal today.
Awake alert oriented
Neuroexam is nonfocal including speech
Cardiovascular system is most appreciated
Chest clear to auscultation
Extremities no edema
# Speech abnormality
Expressive aphasia intermittent.� Patient is able to answer intermittently but then has repeated stuttering of words and keeps repeating the same words.
Normal today
Agreeable for MRI
Patient has risk factors like COVID
Neuro checks/NIH scale
Follow neurology recommendations
CTA of the head and neck
MRI of the brain
# Elevated LFTs-check GGT, CPK no right upper quadrant tenderness
Elevated CPK level noted could be the reason-repeat CPK level
Thiamine has been given in the ER-I would continue that
Alcohol level-Neg
denies that the patient uses alcohol
# Reason for rhabdomyolysis unclear
Repeat CPK
IVF
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
# Radiculopathy with chronic pain
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
Opiate dependence
On Zanaflex, Lyrica, morphine, baclofen as OP
Continue Lower dose of Lyrica
# Anxiety/depression/PTSD/history of suicide attempt
On buspirone, clonazepam, trazodone as OP
Patient appears to be extremely anxious asking repeatedly if she is going to .
Psychiatric evaluation to see if she needs all these meds
Hold Buspar and Trazodone
Continue clonazepam
Prazosin fr PTSD
# Insomnia on Ambien as needed and trazodone-Restart
# History of anorexia and bulimia per chart
# History of seizures-likely not epileptiform
# Gastric bypass surgery in the past
# History of overdose
# History of small bowel obstruction with surgery in the past
# GERD-Add PPI
# DVT Prophylaxis Lovenox
# Full CODE
Spoke to patient's . He states that patient has been on these medicines for a while now. He does not feel that she abuses them. At times he has seen her drowsy but mostly well. He thinks that surgery being postponed really made her Have
her downfall in terms of psychiatric symptoms. She sees primary physician and pain management as well as a psychiatrist.
D/W RN
D/W Neuro at bed side
Discussed with psychiatry
Spoke to PCP Dr.Robert Allen
Patient sees Dr. Lexa Jacobsen pain management,Dr.Julia Taylor Psyche also.
Meds prescribed by them.
Reviewed all the medicines that the patient is on no with him. Some of them were not on his list.
Zanaflex and Baclofen not on his list,
Prazosin for PTSD
He thinks patient takes Aldactone for -PCOS or Acne
Reviewed about LFTs
Plan for stroke workup
Stop Ambien and Zanaflex.
Cut back on Morphine to once a day from 3 times a day
Time spent 62 min
Anticipated Discharge: Within 24 hours
Subjective/Interval History
-
Date of Service: October 09, 2023
Objective Data
-
Labs:
Laboratory Results
10/09/23
04:27
WBC 4.4 L
Hgb 11.7 L
Hct 33.6 L
Plt Count 196
Sodium 132 L
Potassium 3.6
Chloride 102
Carbon Dioxide 27
BUN 13
Creatinine 0.6
Glucose 96
Calcium 8.8
Total Bilirubin 0.7
AST 203 H
ALT 85 H
Alkaline Phosphatase 86
Vital Signs:
Vital Signs
Temp Pulse Resp BP Pulse Ox
98.4 F 103 16 114/80 97
10/09/23 07:54 10/09/23 07:54 10/09/23 07:54 10/09/23 07:54 10/09/23 07:54
I&O
10/08/23 10/09/23 10/10/23
06:59 06:59 06:59
Intake Total 1889 / 1889
Output Total 1200 / 1200
Balance 690 / 690
--- NOTE | 2023-10-09 11:05 | W.PN.NEURO.1 ---
Today's Communication / Plan
-
Discussed with the patient my recommendation for brain MRI without contrast given a small but real chance of ischemic stroke with COVID and had aphasia that is now resolved, also explained that moving forward is certainly would be best in light of
wanting to pursue cervical spine surgery that ischemic stroke is ruled out as this would certainly affect surgical planning and timing if stroke was not definitively ruled out.
Neurologic checks
Can stop aspirin if brain MRI shows no acute stroke
Neuro Assessment/Plan
Assessment
53-year-old woman with past medical history of anxiety, PNES, PTSD, substance use, migraines, presented to hospital with episode of full body stiffness and shaking and then had been noted to have significant language dysfunction concerning for
possible aphasia.
Patient had recently found out that her cervical spine surgery was canceled due to insurance coverage issues. She tested positive for COVID here and is asymptomatic her had been mildly symptomatic from COVID but has not improving.
Neurologic examination today 10/08 is normal with no evidence of aphasia.
Most likely her symptoms are related to recent stressors in addition to anxiety disorder at baseline, however there is a small but real chance of ischemic stroke with recent COVID.
Subjective/Objective
Subjective Data
Date of Service: October 09, 2023
No acute events, patient very anxious, feels like speech is normalized, relates had COVID and is improving, greatly desires to leave hospital and look into getting spine surgery given right arm weakness and neck pain
Objective Data
Vital Signs
Temp Pulse Resp BP Pulse Ox
98.4 F 103 16 114/80 97
10/09/23 07:54 10/09/23 07:54 10/09/23 07:54 10/09/23 07:54 10/09/23 07:54
Lab Results
10/09/23 04:27
10/09/23 04:27
PT 13.9 Sec (11.4-14.6) 10/08/23 13:46
INR 1.07 10/08/23 13:46
APTT 31.8 Sec (23.4-35.0) 10/08/23 13:46
Sodium 132 mmol/L (135-145) L 10/09/23 04:27
Potassium 3.6 mmol/L (3.5-5.1) 10/09/23 04:27
BUN 13 mg/dl (7-17) 10/09/23 04:27
Glucose 96 mg/dl (70-99) 10/09/23 04:27
Calcium 8.8 mg/dl (8.4-10.2) 10/09/23 04:27
LDL Cholesterol, Calc 112 mg/dl 10/09/23 04:27
Vitamin B12 976 pg/ml (239-931) H 10/08/23 13:47
Ur Buprenorphine Negative (Negative) 10/09/23 03:26
Patient Allergies
ketamine Allergy (Verified 10/08/23 13:25)
HALLUCINATIONS
Sulfa (Sulfonamide Antibiotics) Allergy (Verified 10/08/23 13:25)
Rash & Toungue Swelling
tetracycline [Tetracycline] Allergy (Verified 10/08/23 13:25)
Rash & Tongue Sweling
Review of Systems
-
History Source: Patient
All other systems: Reviewed and negative
Constitutional: No Symptoms
EENT: No Symptoms Reported
Respiratory: No Symptoms
Cardiac: No Symptoms
Abdomen/GI: No Symptoms
Genitourinary: No Symptoms
Musculoskeletal: No Symptoms
Skin: No Symptoms
Neuro: Speech Problem
Endocrine: No Symptoms
Hematologic / Lymphatic: No Symptoms
Allergy / Immunology: No Symptoms
Physical Exam
-
General: No Apparent Distress
Eyes: No Ptosis
HEENT: Normocephalic
Neck: No Bruits Bilaterally
Respiratory: Clear to Auscultation
Cardiac: Regular Rhythm
GI: Normal Bowel Sounds
Skin: Unremarkable
Extremities: No Clubbing
Psych: Anxious (Tearful)
Extended Neurological Exam
Attention Span & Concentration: Awake, Alert, Interactive and No Difficulty with 2 Step Request
Memory: Unremarkable and Able to Recall
Tremor: Hand Tremor Absent
Involuntary Movement: None
Speech: Quality Unremarkable, Quantity Unremarkable and Other (Normal fluent speech, intact comprehension); Negative Expressive Aphasia, Receptive Aphasia or Dysarthric
Cranial Nerve II: Left Eye: Pupillary Reactivity Unremarkable and Visual Mario Intact
Cranial Nerve II: Right Eye: Pupillary Reactivity Unremarkable and Visual Mario Intact
Cranial Nerves III, IV, : Extraocular Movement: Extraocular Movement Full in all Directions
Cranial Nerve VII: Facial Symmetry: Normal Facial Symmetry
Muscle Strength, Overall: Full Throughout
Pronator Drift: No Drift in Upper Extremities
Deep Tendon Reflexes: Trace Throughout
Cold Sensation: Unremarkable
Coordination: Jtpzbj-viud-fbddee Testing Unremarkable
Data Reviewed
-
CT-A: Report Reviewed and Image Reviewed
CT Head: Report Reviewed and Image Reviewed
MRI Head: Ordered and Pending
Labs: Report Reviewed
[2023-10-09 11:06] LABS: Osmolality Serum 279 mOsm/kg (275-300)
[2023-10-09 11:46] VITALS: BP 103/72
--- NOTE | 2023-10-09 12:46 | PTOTSP ---
Speech Therapy Assessment
Patient's speech, language and swallowing judged grossly within functional limits. Comprehensive assessment in outpatient setting recommended if further testing reveals stroke or if functional neurological disorder is suspected as negatively
impacting cognitive communication functioning.
Recommend
Continue with regular solids and thin liquids
No skilled ST indicated in acute setting.
As mentioned above, consider OP ST if indicated.
[2023-10-09 12:50] LABS: Acetaminophen < 10 ug/ml (10-30)
[2023-10-09 13:21] LABS: Creatine Phosphokinase 3275 U/L (30-135)
[2023-10-09] MEDS: NSS 1000 IV (13:21)
[2023-10-09] MEDS: TYLENOL 650 MG PO (15:32)
[2023-10-09 15:58] VITALS: BP 121/72
[2023-10-09 16:04] LABS: Osmolality Urine 236 mOsm/kg (300-900)
[2023-10-09 16:09] LABS: Urine Sodium 15 mmol/L (30-90)
--- NOTE | 2023-10-09 16:47 | W.PN.UPDATE ---
Update Note
Progress Note Update
Patient very emotionally unstable crying and screaming when I try to explained about her rhabdo. Patient admitted to exercising a lot.
She stated that she was promised neurology doing the MRI. Explained the reason why she is on IV fluids. Also discussed about LFTs.
She wants to go home. But not sure if she can get blood work done as outpatient.
Gave her the option to stay versus go home with outpatient blood work
She is undecided.
Emotionally very unstable and no rationale when she talks.
Very childish.
admitted this is how she is when I spoke to her this am.
[2023-10-09] MEDS: ATIVAN 0.5 MG IV (17:15)
[2023-10-09] MEDS: NSS (PRESERVATIVE FREE) 0.25 ML IV (17:15)
[2023-10-09] MEDS: D5/0.9% SODIUM CHLORIDE 1000 IV (17:18)
[2023-10-09] MEDS: LOVENOX 40 MG SC (17:20)
--- NOTE | 2023-10-09 17:27 | CM ---
Patient with Covid. Per MD and staff, patient is emotionally very unstable and not rationale when she talks, screaming at staff. Will defer initial assessment at this time.
--- NOTE | 2023-10-09 17:45 | PTCARENOTE ---
RN called to bedside by kareen patient screaming in room, Stating no one cares about her and that the doctor never informed her she had abnormal labs. Stating she was not informed of why she needs the IV fluids. was going to call patient with
all results of MRI, US of ABD, and lab work when they were available. RN was made aware by . Patient impatient and tearful and screaming. Results were available and doctor called patient via phone. Patient was reoriented and redirected by RN at
bedside, she was very irrational stating she has errands to run and doesn't care if she dies due to her reported lab work. RN told her its important for her to get a full workup while in the hospital to get proper treatment. Ativan ordered and
given. IV fluids changed per order.
[2023-10-09 19:09] VITALS: BP 124/78
[2023-10-09] MEDS: LYRICA 150 MG PO (20:35)
[2023-10-09] MEDS: MINIPRESS 2 MG PO (22:18)
[2023-10-09] MEDS: DESYREL 50 MG PO (22:18)
[2023-10-09 23:00] VITALS: BP 106/75
[2023-10-10] MEDS: D5/0.9% SODIUM CHLORIDE 1000 IV (02:31)
[2023-10-10 03:37] VITALS: BP 109/66
[2023-10-10 07:29] VITALS: BP 115/77
[2023-10-10] MEDS: LYRICA 150 MG PO (08:02)
[2023-10-10] MEDS: FEOSOL 325 MG PO (08:02)
[2023-10-10] MEDS: LOW STRENGTH ASPIRIN 81 MG PO (08:02)
[2023-10-10] MEDS: VITAMIN B1 100 MG PO (08:02)
[2023-10-10] MEDS: KLONOPIN 0.5 MG PO (08:02)
[2023-10-10] MEDS: VITAMIN D3 (cholecalciferol) 50 MCG PO (08:02)
[2023-10-10] MEDS: VITAMIN B-12 1000 MCG PO (08:03)
[2023-10-10] MEDS: LYRICA 100 MG PO (08:03)
[2023-10-10 09:07] LABS: ALT (SGPT) 76 U/L (0-35); AST (SGOT) 158 U/L (14-36); Albumin 3.6 g/dl (3.5-5.0); Alkaline Phosphatase 84 U/L (38-126); Blood Urea Nitrogen 10 mg/dl (7-17); Calcium 8.5 mg/dl (8.4-10.2); Carbon Dioxide 26 mmol/L (22-30); Chloride 107 mmol/L (98-107); Creatine Phosphokinase 1225 U/L (30-135); Estimated Creatinine Clearance 91 ml/min; Glucose 96 mg/dl (70-99); Potassium 3.6 mmol/L (3.5-5.1); Sodium 137 mmol/L (135-145); Total Bilirubin 0.5 mg/dl (0.2-1.3); Total Protein 5.9 g/dl (6.3-8.2); eGFR > 60.00
--- NOTE | 2023-10-10 10:05 | PTCARENOTE ---
RN replied to patient call king, Patient defecated on self and would like nurse to change her bed sheets and help with cleaning her up. Patient bed sheets removed and patient cleaned. RN helped patient with dressing self, applied paper scrubs as
well as attends. Patient panel monitor off, RN verified with patient day shift nurse if that was okay, cleared to have monitor off. RN left room as patient did not need any further assistance. Call king went off again, Patient screaming at nurse
saying ' you never cleaned my bed sheets so therefore I have to do it myself'! 'I want something to drink you are incompetent and I hate this hospital'. RN gave patient a jerzy sharee and informed patient the sheets were changed and cleaned. Patient
reports RN did not tuck her in bed so therefore the job was not done right. Patient requested plastic bag for soiled underwear-provided by RN. Patient began screaming at RN stating 'You are delusional and garbage, I want to leave this hospital, all
the staff and doctors are trash'. Patient encouraged to calm down. RN was told to leave room by patient.
--- NOTE | 2023-10-10 11:10 | W.PN.HOSP.TC ---
Today's Communication/Plan
-
Discharge with OP follow up.
Rpt labs in 1 week
Assessment / Plan
Assessment / Plan
Patient very tearful today, Wants to go home .speech is normal today.
Awake alert oriented
Neuroexam is nonfocal including speech
Cardiovascular system is most appreciated
Chest clear to auscultation
Extremities no edema
# Speech abnormality
Expressive aphasia intermittent.� Patient is able to answer intermittently but then has repeated stuttering of words and keeps repeating the same words.
Normal today
MRI -No CVA
# Elevated LFTs
Due to Rhabdo from Exercise.
Better with IVF
Re check as OP
Uss normal.
#COVID 19 infection- Discussed benefits and risks of Paxlovid. She doesn't want to take it. Says this is a 'present ' from her . Also feels she contracted it longer than 5 days ago anyways. She just has a runny nose and no other symptoms.
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
# Radiculopathy with chronic pain
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
Opiate dependence
On Zanaflex, Lyrica, morphine, baclofen as OP
Continue Lyrica
# Anxiety/depression/PTSD/history of suicide attempt
On buspirone, clonazepam, trazodone as OP
Prazosin for PTSD
Psycjsaulo baumann noted.
# Insomnia on Ambien as needed and trazodone
Stop Ambien and continue Trazodone
# History of anorexia and bulimia per chart
# History of seizures-likely not epileptiform
# Gastric bypass surgery in the past
# History of overdose
# History of small bowel obstruction with surgery in the past
# GERD - Considrered PPI, But will defer to Op Bariatric doc.
She needs to follow up.
# DVT Prophylaxis Lovenox
# Full CODE
10/09/23-Spoke to patient's . He states that patient has been on these medicines for a while now. He does not feel that she abuses them. At times he has seen her drowsy but mostly well. He thinks that surgery being postponed really made
her Have her downfall in terms of psychiatric symptoms. She sees primary physician and pain management as well as a psychiatrist.
D/W RN
10/09/23-Spoke to PCP Dr.Robert Allen
Patient sees Dr. Lexa Jacobsen pain management,Dr.Julia Brandon Flanagan also.
Meds prescribed by them.
Reviewed all the medicines that the patient is on no with him. Some of them were not on his list.
Zanaflex and Baclofen not on his list,
Prazosin for PTSD
He thinks patient takes Aldactone for -PCOS or Acne
Reviewed about LFTs
Plan for stroke workup
Stopped Ambien and Zanaflex. Cut back on Morphine to once a day from 3 times a day
She is anxious for discharge
Discharge time 31min
Anticipated Discharge: Today
Subjective/Interval History
-
Date of Service: October 10, 2023
Objective Data
-
Labs:
Laboratory Results
10/10/23
08:19
Sodium 137
Potassium 3.6
Chloride 107
Carbon Dioxide 26
BUN 10
Creatinine 0.6
Glucose 96
Calcium 8.5
Total Bilirubin 0.5
AST 158 H
ALT 76 H
Alkaline Phosphatase 84
Vital Signs:
Vital Signs
Temp Pulse Resp BP Pulse Ox
97.8 F 104 20 115/77 96
10/10/23 07:29 10/10/23 07:29 10/10/23 07:29 10/10/23 07:29 10/10/23 08:57
I&O
10/09/23 10/10/23 10/11/23
06:59 06:59 06:59
Intake Total 1890 / 1890 2820 / 2820
Output Total 1200 / 1200
Balance 690 / 690 2820 / 2820
--- NOTE | 2023-10-10 11:18 | W.DS.TRANS ---
Addendum entered and electronically signed by Lianna Purvis MD 10/10/23 18:20:
Dictation- [id number]
Original Note:
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
-
Discharge Instructions:
Discharge Diagnosis/Procedures Speech abnormality, COVID-19 infection,
rhabdomyolysis, elevated LFTs, cervical
radiculopathy with chronic pain, anxiety,
depression, PTSD, insomnia, history of gastric
bypass
Diet As tolerated
Activity As tolerated
Driving Restrictions No driving when you take morphine
Blood Work CPK, LFTs 1 week See
Instructions:
Stand-Alone Forms:
Changes to Home Medications: Yes
Discharge Medications:
DC Medications w/original date entered in [employer]
albuterol sulfate 2.5 mg/3 mL (0.083 %) solution for nebulization 2.5 mg inhalation R Q4HPRN PRN sob 10/08/23
albuterol sulfate 90 mcg/actuation aerosol inhaler 1 puff inhalation R Q4HPRN PRN sob 10/08/23
baclofen 5 mg tablet 5 mg PO BID PRN muscle spasms 10/08/23
clonazepam 0.5 mg tablet 0.5 mg PO BID PRN anxiety 10/08/23
melatonin 3 mg tablet 3 mg PO HS PRN sleep 10/08/23
spironolactone 50 mg tablet 50 mg PO BID 10/08/23
therapeutic multivitamin 1 tab PO DAILY 10/08/23
trazodone 50 mg tablet 50 mg PO HS PRN sleep 10/08/23
buspirone 7.5 mg tablet 7.5 mg PO BID Mental Health/Anxiety #0 tabs 10/10/23
cholecalciferol (vitamin D3) 50 mcg (2,000 unit) tablet 50 mcg PO DAILY Supplement #0 tabs 10/10/23
cyanocobalamin (vitamin B-12) 1,000 mcg tablet 1,000 mcg PO DAILY Supplement #0 tabs 10/10/23
ferrous sulfate 325 mg (65 mg iron) tablet 325 mg PO DAILY Supplement #0 tabs 10/10/23
morphine 15 mg immediate release tablet 15 mg PO DAILY Pain #0 tabs 10/10/23
prazosin 2 mg capsule 2 mg PO HS Mental Health/Anxiety #0 caps 10/10/23
pregabalin 150 mg capsule 150 mg PO BID Pain #0 caps 10/10/23
pregabalin 50 mg capsule 100 mg PO BID Pain #0 caps 10/10/23
thiamine HCl (vitamin B1) 100 mg tablet 100 mg PO DAILY Supplement #30 tabs 10/10/23
Home Medication Changes
new
Thiamine
Stopped Ambien and Zanaflex
Morphine changed to daily
Pending Results: No
--- NOTE | 2023-10-10 11:42 | PTCARENOTE ---
patient walked out of room before I could go over patient discharged instruction thoroughly. IV was removed previously so i followed patient down to discharge area and saw her to her car where her was waiting to pick her up. I gave patient
her discharge instruction but she refused to sign the back page.
--- NOTE | 2023-10-10 15:06 | CM ---
Patient has been medically cleared for discharge to home with no additional skilled services. Patient arranged for transport home.
== END 2023-10-10 11:39 | disposition home or self-care (01) ==
LOC: 2 NORTH 18:13
PROVIDERS: ADMITTING PHYSICIAN Hospitalist; CONSULT PHYSICIAN Psychiatry & Neurology Neurology; EMERGENCY PHYSICIAN Emergency Medicine
DX: R47.01 Aphasia (principal); U07.1 COVID-19; M62.82 Rhabdomyolysis; M51.36 Other intervertebral disc degeneration, lumbar region; M54.2 Cervicalgia; M54.9 Dorsalgia, unspecified; G89.29 Other chronic pain; R79.89 Other specified abnormal findings of blood chemistry; M47.26 Other spondylosis with radiculopathy, lumbar region; F11.20 Opioid dependence, uncomplicated; F32.A Depression, unspecified; F43.10 Post-traumatic stress disorder, unspecified; F19.90 Other psychoactive substance use, unspecified, uncomplicated; R56.9 Unspecified convulsions; R42 Dizziness and giddiness; G47.00 Insomnia, unspecified; I10 Essential (primary) hypertension; K21.9 Gastro-esophageal reflux disease without esophagitis; Z98.84 Bariatric surgery status; Z87.19 Personal history of other diseases of the digestive system; Z91.51 Personal history of suicidal behavior; Z90.49 Acquired absence of other specified parts of digestive tract; Z88.1 Allergy status to other antibiotic agents; Z88.2 Allergy status to sulfonamides; Z82.0 Family history of epilepsy and other diseases of the nervous system; Z88.8 Allergy status to other drugs, medicaments and biological substances; Z90.710 Acquired absence of both cervix and uterus
CPT/HCPCS: 70450; 70496; 70498; 70551; 76700; 80053; 80061; 80143; 80306; 80307; 81003; 81015; 82077; 82550; 82607; 82962; 82977; 83036; 83735; 83930; 83935; 84300; 85025; 85027; 85610; 85730; 87070; 87502; 87811; 92610; 93005; 96361; 96374; 96375; 99291; 99406; G0378; Q9967

== ENCOUNTER → 2025-04-19 14:53 | Outpatient (REF) | payer OTHER, SELFPAY | LOC: MRI 14:53 | PROVIDERS: ATTENDING PHYSICIAN Specialist; FAMILY PHYSICIAN Family Medicine | DX: M54.12 Radiculopathy, cervical region (principal) | CPT/HCPCS: 72141 ==